=== PATIENT | male | born 1975 | race Caucasian/White ===

== ENCOUNTER 2016-06-28 04:05 | Emergency (ER) | payer OTHER ==
[~2016-06-28] VITALS: Ht 170.2 cm; Wt 68.0 kg
[2016-06-28 04:07] VITALS: Ht 170.2 cm; Wt 68.0 kg
[2016-06-28] MEDS ORDERED: AMO500 PO (04:38)
[2016-06-28] MEDS ORDERED: CETI10CA PO (04:38)
[2016-06-28] MEDS ORDERED: IBUP-1542 PO (04:38)
--- NOTE | 2016-06-28 04:47 | ERD ---
ER Documentation Chief Complaint Date/Time DATE: 06/28/16 TIME: 04:45 Chief Complaint bilateral pain x 4days HPI 41-year-old male presents here in emergency department for complaints of bilateral ear pain for 4 days. Patient went to a higher altitude, started to have the pains afterward. Patient describes the pain as throbbing pain,4/10 scale, denies any ear discharge. Patient did not take her medications to help with symptoms. Patient denies any problems with hearing. Patient did not take any medications of symptoms. ROS All systems reviewed and are negative except as per history of present illness. Medications Home Meds Active Scripts Cetirizine Hcl* (Zyrtec*) 10 Mg Capsule, 10 MG PO DAILY, #30 TAB.CHEW Prov:ELA RAYMUNDO ANESTHESIOLOGY FELLOW 06/28/16 Ibuprofen* (Motrin*) 600 Mg Tab, 600 MG PO Q6H Y for PAIN AND OR ELEVATED TEMP, #30 TAB Prov:ELA RAYMUNDO NP 06/28/16 Amoxicillin* (Amoxicillin*) 500 Mg Cap, 500 MG PO TID for 10 Days, CAP Prov:ELA RAYMUNDO ANESTHESIOLOGY FELLOW 06/28/16 Allergies Allergies: Coded Allergies: No Known Allergy (Unverified , 06/28/16) PMhx/Soc Medical and Surgical Hx: pt denies Medical Hx, pt denies Surgical Hx Anesthesia Reaction: No Hx Neurological Disorder: No Hx Respiratory Disorders: No Hx Cardiac Disorders: No Hx Psychiatric Problems: No Hx Miscellaneous Medical Probl: No Hx Alcohol Use: Yes (socially) Hx Substance Use: No Hx Tobacco Use: No Smoking Status: Never smoker FmHx Family History: No coronary disease, No diabetes, No other Physical Exam Vitals Vital Signs Date Time Temp Pulse Resp B/P Pulse Ox O2 Delivery O2 Flow Rate FiO2 06/28/16 04:07 97.4 68 20 123/67 100 Physical Exam GENERAL: The patient is well developed and appropriate for usual state of health, in no apparent distress. HEENT: Atraumatic. Ears: Bilateral ear tympanic membrane noted to be erythematous and bulging. No ear canal swelling. No ear discharge. Nose: normal nasal turbinates, no erythema or swelling. Normal nasal discharge. Throat: oropharynx clear. No tonsillar swelling or tonsillar exudates. No lymphadenopathy. CHEST: Clear to auscultation bilaterally. There are no rales, wheezes or rhonchi. HEART: Regular rate and rhythm. No murmurs, clicks, rubs or gallops. No S3 or S4. ABDOMEN: Soft, nontender and nondistended. Good bowel sounds. No rebound or guarding. No gross peritonitis. No gross organomegaly or masses. No Georges sign or McBurney point tenderness. BACK: No midline or flank tenderness. EXTREMITIES: Equal pulses bilaterally. There is no peripheral clubbing, cyanosis or edema. No focal swelling or erythema. Full range of motion. Grossly neurovascularly intact. NEURO: Alert and oriented. Cranial nerves 2-12 intact. Motor strength in all 4 extremities with 5/5 strength. Sensation grossly intact. Normal speech and gait. SKIN: There is no apparent rash or petechia. The skin is warm and dry. HEMATOLOGIC AND LYMPHATIC: There is no evidence of excessive bruising or lymphedema. No gross cervical, axillary, or inguinal lymphadenopathy. Procedures/MDM Medical decision making: Patient symptoms is likely consistent with otitis media , no symptoms of otitis externa or mastoiditis. No foreign body noted in the ear. No ear discharge noted. No symptoms of sepsis at this time. Patient appears well and is hemodynamically stable. Patient is given prescription for amoxicillin, Zyrtec, ibuprofen, is advised to follow with primary care doctor in 2-3 days for reevaluation of symptoms. Patient was advised to return to emergency department for worsening symptoms. Departure Diagnosis: Primary Impression: Bilateral otitis media Otitis media type: serous Chronicity: acute Recurrence: not specified as recurrent Qualified Code: H65.03 - Bilateral acute serous otitis media, recurrence not specified Condition: Stable Patient Instructions: Otitis Media, Abx Tx (Adult) ELA RAYMUNDO NP Jun 28, 2016 04:47
== END 2016-06-28 04:51 | disposition home or self-care (01) ==
LOC: FTE 04:05
DX: H65.03 Acute serous otitis media, bilateral (principal)
CPT/HCPCS: 99283

== ENCOUNTER 2017-10-03 04:49 | Emergency (ER) | END 2017-10-03 05:55 | disposition home or self-care (01) ==

== ENCOUNTER 2018-09-16 05:19 | Emergency (ER) | payer OTHER ==
[~2018-09-16] VITALS: Ht 160 cm; Wt 70.5 kg
[~2018-09-16 05:19] MED LIST: AMOX500C2 PO; CETI10CA PO; HC30CR25 TOP; HYDR-842 PO; IBUP-1542 PO
[2018-09-16 05:21] VITALS: Ht 160 cm; Wt 70.5 kg
[2018-09-16] MEDS ORDERED: ONDANSETRON 4 MG INJ IV STA (05:40)
[2018-09-16] MEDS ORDERED: SOD CHLORIDE 0.9% 1,000 ML IV STA (05:40)
[2018-09-16] MEDS ORDERED: morphine 4 MG/ML VIAL IV STA (05:40)
[2018-09-16] MEDS ORDERED: KETOROLAC 30 MG INJ IV STA (06:47)
[2018-09-16] MEDS ORDERED: IBUP-1542 PO (07:09)
[2018-09-16 07:25] VITALS: BP 128/78; PULSE 75; RESP 16
--- NOTE | 2018-09-16 07:42 | ERD ---
ER Documentation Chief Complaint Chief Complaint R flank pain x 4 days that is getting worse HPI Patient is a 43-year-old male with no medical problems who presents with right- sided flank pain. He said that it started 4 days ago. The pain comes and goes. He said that it is worse at night. He has no fevers. He took ibuprofen for the pain. He does have frequent urination. Upon review of old medical records this is the patient's third visit to the ER since 2017. [facility] goes to the [facility] for his primary care. ROS All systems reviewed and are negative except as per history of present illness. Medications Home Meds Active Scripts Ibuprofen* (Motrin*) 600 Mg Tab, 600 MG PO Q6H PRN for PAIN AND OR ELEVATED TEMP, #30 TAB Prov:KJ BLISS MD 09/16/18 Hydrocortisone* Topical (Hydrocortisone* Topical) 2.5%-28.3 Gm Cream..g., 1 APPLIC TOP BID, #1 TUB Prov:GAGE PEREYRA PA-C 10/03/17 Hydroxyzine Hcl* (Atarax*) 25 Mg Tab, 25 MG PO Q6H PRN for ITCHING, #20 TAB Prov:GAGE PEREYRA PA-C 10/03/17 Cetirizine Hcl* (Zyrtec*) 10 Mg Capsule, 10 MG PO DAILY, #30 TAB.CHEW Prov:ELA RAYMUNDO NP 06/28/16 Ibuprofen* (Motrin*) 600 Mg Tab, 600 MG PO Q6H PRN for PAIN AND OR ELEVATED TEMP, #30 TAB Prov:ELA RAYMUNDO SET STAFF FITTER 06/28/16 Amoxicillin* (Amoxicillin*) 500 Mg Cap, 500 MG PO TID for 10 Days, CAP Prov:ELA RAYMUNDO [employer] STAFF FITTER 06/28/16 Allergies Allergies: Coded Allergies: No Known Allergy (Unverified , 06/28/16) PMhx/Soc Medical and Surgical Hx: pt denies Medical Hx History of Surgery: Yes (APPY) Anesthesia Reaction: No Hx Neurological Disorder: No Hx Respiratory Disorders: No Hx Cardiac Disorders: No Hx Psychiatric Problems: No Hx Miscellaneous Medical Probl: No Hx Alcohol Use: No Hx Substance Use: No Hx Tobacco Use: No Smoking Status: Never smoker FmHx Family History: No diabetes Physical Exam Vitals Vital Signs Date Temp Pulse Resp B/P (MAP) Pulse Ox O2 O2 Flow FiO2 Time Delivery Rate 09/16/18 98.8 75 16 128/78 98 Room Air 07:25 (95) 09/16/18 97.9 84 16 135/89 100 05:21 (104) Physical Exam Const: No acute distress Head: Atraumatic Eyes: Normal Conjunctiva ENT: Normal External Ears, Nose and Mouth. Neck: Full range of motion. No meningismus. Resp: Clear to auscultation bilaterally Cardio: Regular rate and rhythm, no murmurs Abd: Soft, non tender, non distended. Normal bowel sounds Skin: No petechiae or rashes Back: No midline or flank tenderness Ext: No cyanosis, or edema Neur: Awake and alert Psych: Normal Mood and Affect Result Diagram: 09/16/18 0554 09/16/18 0554 Results 24 hrs Laboratory Tests Test 09/16/18 05:54 White Blood Count 7.0 10^3/ul Red Blood Count 5.63 10^6/ul Hemoglobin 16.6 g/dl Hematocrit 48.1 % Mean Corpuscular Volume 85.4 fl Mean Corpuscular Hemoglobin 29.5 pg Mean Corpuscular Hemoglobin Concent 34.5 g/dl Red Cell Distribution Width 11.9 % Platelet Count 251 10^3/UL Mean Platelet Volume 9.4 fl Immature Granulocytes % 0.300 % Neutrophils % 37.3 % Lymphocytes % 45.4 % Monocytes % 5.0 % Eosinophils % 11.1 % Basophils % 0.9 % Nucleated Red Blood Cells % 0.0 /100WBC Immature Granulocytes # 0.020 10^3/ul Neutrophils # 2.6 10^3/ul Lymphocytes # 3.2 10^3/ul Monocytes # 0.4 10^3/ul Eosinophils # 0.8 10^3/ul Basophils # 0.1 10^3/ul Nucleated Red Blood Cells # 0.0 10^3/ul Urine Color YELLOW Urine Clarity CLEAR Urine pH 6.0 Urine Specific [place] 1.015 Urine Ketones NEGATIVE mg/dL Urine Nitrite NEGATIVE mg/dL Urine Bilirubin NEGATIVE mg/dL Urine Urobilinogen NEGATIVE mg/dL Urine Leukocyte Esterase NEGATIVE [place]/ul Urine Hemoglobin NEGATIVE mg/dL Urine Glucose NEGATIVE mg/dL Urine Total Protein NEGATIVE mg/dl Sodium Level 140 mmol/L Potassium Level 3.7 mmol/L Chloride Level 101 mmol/L Carbon Dioxide Level 30 mmol/L Anion Gap 9 Blood Urea Nitrogen 12 mg/dl Creatinine 1.00 mg/dl Est Glomerular Filtrat Rate mL/min > 60 mL/min Glucose Level 159 mg/dl Calcium Level 9.4 mg/dl Total Bilirubin 1.4 mg/dl Direct Bilirubin 0.00 mg/dl Indirect Bilirubin 1.4 mg/dl Aspartate Amino Transf (AST/SGOT) 21 IU/L Alanine Aminotransferase (ALT/SGPT) 38 IU/L Alkaline Phosphatase 58 IU/L Total Protein 7.2 g/dl Albumin 4.2 g/dl Globulin 3.00 g/dl Albumin/Globulin Ratio 1.40 Lipase 146 U/L Current Medications Medications Dose Sig/Renea Start Time Status Last (Trade) Ordered Route PRN Stop Time Admin Dose Reason Admin Sodium 1,000 ml @ Q1H STAT 09/16/18 DC 09/16/18 Chloride 1,000 mls/hr IV 05:40 05:49 09/16/18 06:39 Morphine 4 mg ONCE STAT 09/16/18 DC 09/16/18 Sulfate IV 05:40 05:50 (morphine) 09/16/18 05:41 Ondansetron 4 mg ONCE STAT 09/16/18 DC 09/16/18 HCl (Zofran IV 05:40 05:50 Inj) 09/16/18 05:41 Ketorolac 30 mg ONCE STAT 09/16/18 DC Tromethamine IV 06:47 (Toradol) 09/16/18 06:48 Procedures/MDM CT abdomen and pelvis read by radiology. Patient is a 43-year-old male presents with right-sided flank pain. Urinalysis shows no sign of infection or hematuria. Laboratory studies are basically normal. CT scan shows a horseshoe kidney but no signs of obvious surgical process or kidney stone. At this point I doubt serious etiology of his pain. I doubt appendicitis, cholecystitis, pancreatic, or bowel obstruction. The patient will be discharged home but will need to follow-up closely with his primary doctor within 24-48 hours. He can return for any worsening symptoms. Departure Diagnosis: Primary Impression: Flank pain Condition: Fair Patient Instructions: Flank Pain, Uncertain Cause Referrals: Your doctor Additional Instructions: Call your primary care doctor TOMORROW for an appointment during the next 1-2 days.See the doctor sooner or return here if your condition worsens before your appointment time. KJ BLISS MD Sep 16, 2018 07:42
== END 2018-09-16 07:26 | disposition home or self-care (01) ==
LOC: E/R 05:19
DX: R10.9 Unspecified abdominal pain (principal)
CPT/HCPCS: 36415; 74176; 80053; 81003; 83690; 85025; 96374; 96375; J2270; J2405; J7030; Z7502